=== PATIENT | female | born 1985 | race African-American/Black ===

== ENCOUNTER 2016-07-29 10:20 | Emergency (ER) | payer OTHER ==
[~2016-07-29] VITALS: Ht 167.6 cm; Wt 70.3 kg
[2016-07-29 10:34] VITALS: BP 118/83
[2016-07-29] MEDS ORDERED: NAPROXEN 500 MG TABLET PO STA (10:57)
[2016-07-29] MEDS ORDERED: HYDROCODONE/APAP 5/325MG TABLET. PO ONE (11:00)
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
[2016-07-29] MEDS ORDERED: ACET-704 PO (11:36)
[2016-07-29] MEDS ORDERED: NAPR500T8 PO (11:36)
[2016-07-29] MEDS ORDERED: CYCL10TA2 PO (11:36)
== END 2016-07-29 11:38 | disposition home or self-care (01) ==
LOC: ER 10:20
DX: S93.401A Sprain of unspecified ligament of right ankle, initial encounter (principal); S90.31XA Contusion of right foot, initial encounter; Z88.0 Allergy status to penicillin; V49.49XA Driver injured in collision with other motor vehicles in traffic accident, initial encounter; Y93.89 Activity, other specified; Y92.89 Other specified places as the place of occurrence of the external cause; Y99.8 Other external cause status
CPT/HCPCS: 73610; 73630; 99284-25